=== PATIENT | male | born 1960 | race Caucasian/White ===

== ENCOUNTER 2019-01-05 10:46 | Emergency (ER) | payer OTHER, SELFPAY ==
[2019-01-05] MEDS ORDERED: Lidocaine 1% PF 5 ML VIAL ONE ×2 (11:19→11:20)
[2019-01-05] MEDS ORDERED: Adacel (T-DAP) 0.5 ML SYRINGE ONE (11:32)
[2019-01-05] MEDS ORDERED: Bacitracin 1 PK ONE (11:35)
== END 2019-01-05 12:20 | disposition home or self-care (01) ==
LOC: SCSER 10:46
DX: S61.212A Laceration without foreign body of right middle finger without damage to nail, initial encounter (principal); Z23 Encounter for immunization; W26.0XXA Contact with knife, initial encounter
CPT/HCPCS: 12001; 90471; 90715; J2001